=== PATIENT | female | born 1975 | race Native Hawaiian/Other Pacific Islander ===

== ENCOUNTER 2022-10-19 14:54 | Emergency (ER) | payer OTHER ==
[~2022-10-19] VITALS: Ht 167.6 cm; Wt 93.9 kg
[2022-10-19 15:00] VITALS: BP 133/84; TEMP 97.8
== END 2022-10-19 15:42 | disposition home or self-care (01) ==
LOC: ED 14:54
DX: K29.60 Other gastritis without bleeding (principal); Z72.0 Tobacco use; E66.9 Obesity, unspecified
CPT/HCPCS: 99282